=== PATIENT | female | born 1990 | race Caucasian/White ===

== ENCOUNTER 2017-03-26 17:14 | Emergency (ER) | payer MEDICAID ==
[~2017-03-26] VITALS: Ht 157.5 cm; Wt 49.0 kg
[~2017-03-26 17:14] MED LIST: NONE REPORTED
[2017-03-26] MEDS ORDERED: KETOROLAC 60MG/2ML VIAL IM ONE (21:45)
[2017-03-26 22:45] VITALS: BP 123/70
== END 2017-03-26 23:10 | disposition home or self-care (01) ==
LOC: ER 21:29
DX: G89.29 Other chronic pain (principal); M54.2 Cervicalgia; M54.6 Pain in thoracic spine
CPT/HCPCS: 81025; 96372; 99283; J1885

== ENCOUNTER 2018-01-21 10:38 | Emergency (ER) | payer MEDICAID ==
[~2018-01-21] VITALS: Ht 160 cm; Wt 48.0 kg
[2018-01-21 11:01] LABS: CLARITY URINE CLOUDY (CLEAR); COLOR URINE YELLOW (YELLOW); KETONES URINE NEGATIVE (NEGATIVE); LEUKOCYTE ESTERASE URINE NEGATIVE (NEGATIVE); NITRITE URINE NEGATIVE (NEGATIVE); OCCULT BLOOD URINE 1+ (NEGATIVE); PROTEIN URINE NEGATIVE (NEGATIVE); SPECIFIC GRAVITY URINE 1.023 (1.005-1.030)
[2018-01-21 14:36] LABS: CHLORIDE 107 mEq/L (98-107)
[2018-01-21 14:37] LABS: BASOPHILS % 0.3 % (0.0-2.0); HEMOGLOBIN. 12.8 g/dL (12.0-16.0); LYMPHOCYTES % 24.2 % (20.0-50.0); MEAN CORPUSCULAR HEMOGLOBIN 31.9 pg (28.0-32.0); MEAN CORPUSCULAR VOLUME 92.5 fL (81.0-99.0); MEAN PLATELET VOLUME 7.8 fl (7.4-10.4); MONOCYTES % 5.2 % (2.0-8.0); NEUTROPHILS % 67.3 % (40.0-76.0); PLATELET 284 x1000/uL (130-400); RED CELL DISTRIBUTION WIDTH 11.6 % (11.6-14.6)
[2018-01-21 14:38] LABS: PROTHROMBIN TIME 10.9 sec (9.4-11.6)
[2018-01-21 17:07] VITALS: BP 112/60
== END 2018-01-21 17:08 | disposition home or self-care (01) ==
LOC: ER 12:41
DX: R10.2 Pelvic and perineal pain (principal)
CPT/HCPCS: 36415; 76856; 80053; 81003; 81025; 83690; 85025; 85610; 99285

== ENCOUNTER 2018-06-04 11:52 | Emergency (ER) | payer MEDICAID ==
[~2018-06-04] VITALS: Ht 157.5 cm; Wt 45.0 kg
[2018-06-04 12:44] LABS: BASOPHILS % 0.6 % (0.0-2.0); EOSINOPHILS % 2.5 % (0.0-5.0); HEMATOCRIT. 40.2 % (36.0-48.0); HEMOGLOBIN. 13.6 g/dL (12.0-16.0); LYMPHOCYTES % 26.2 % (20.0-50.0); MEAN CORPUSCULAR HEMOGLOBIN 31.2 pg (28.0-32.0); MEAN PLATELET VOLUME 7.6 fl (7.4-10.4); MONOCYTES % 5.7 % (2.0-8.0); PLATELET 306 x1000/uL (130-400); RED BLOOD CELL COUNT 4.37 mill/uL (4.2-5.4); RED CELL DISTRIBUTION WIDTH 12.2 % (11.6-14.6)
[2018-06-04 12:50] LABS: PROTHROMBIN TIME 10.1 sec (9.1-11.1)
[2018-06-04 12:53] LABS: CHLORIDE 101 mEq/L (98-107)
[2018-06-04] MEDS ORDERED: SODIUM CHLORIDE 0.9% 1,000 ML IV ONE (13:20)
[2018-06-04] MEDS ORDERED: KETOROLAC 30MG/ML VIAL IV STA (13:20)
[2018-06-04 13:39] LABS: HCG SCREEN NEGATIVE
[2018-06-04 13:41] LABS: D-DIMER < 0.19 mg/L FEU (<0.50); PARTIAL THROMBOPLASTIN TIME 25.1 sec (23.4-31.0)
[2018-06-04 14:44] LABS: PHENCYCLIDINE URINE SCREEN NEGATIVE (NEGATIVE)
[2018-06-04 14:45] LABS: *AMPHETAMINES SCREEN URINE NEGATIVE (NEGATIVE); *BARBITURATES SCREEN URINE NEGATIVE (NEGATIVE); *BENZODIAZEPINES SCREEN URINE NEGATIVE (NEGATIVE); *COCAINE SCREEN URINE NEGATIVE (NEGATIVE); CANNABINOID URINE SCREEN NEGATIVE (NEGATIVE); METHADONE URINE SCREEN NEGATIVE (NEGATIVE); OPIATES URINE SCREEN NEGATIVE (NEGATIVE)
[2018-06-04 16:22] VITALS: BP 109/66
== END 2018-06-04 16:26 | disposition home or self-care (01) ==
LOC: ER 11:52
DX: R07.9 Chest pain, unspecified (principal); Z79.899 Other long term (current) drug therapy
CPT/HCPCS: 36415; 71045; 80053; 80305; 81025; 84484; 84703; 85025; 85379; 85610; 85730; 93005; 93970; 96374; 99285; J1885; J7030; Z7610

== ENCOUNTER 2020-04-02 11:53 | Emergency (ER) | payer MEDICAID ==
[~2020-04-02] VITALS: Ht 160 cm; Wt 60.0 kg
[2020-04-02] MEDS ORDERED: MAGNESIUM/ALUMINUM HYDROXIDE/SIMETHICONE 30ML UDC PO STA (12:32)
[2020-04-02] MEDS ORDERED: VISCOUS LIDOCAINE 2% 15 ML UDC PO STA (12:32)
[2020-04-02] MEDS ORDERED: ASPIRIN 81MG TABLET PO ONE (14:30)
[2020-04-02] MEDS ORDERED: KETOROLAC 30MG/ML VIAL IM ONE (15:00)
[2020-04-02 16:15] LABS: CHLORIDE 104 mEq/L (98-107)
[2020-04-02 16:24] LABS: BASOPHILS % 0.3 % (0.0-2.0); EOSINOPHILS % 1.8 % (0.0-5.0); HEMATOCRIT. 38.1 % (36.0-48.0); HEMOGLOBIN. 13.2 g/dL (12.0-16.0); LYMPHOCYTES % 25.7 % (20.0-50.0); MEAN CORPUSCULAR HEMOGLOBIN 32.2 pg (28.0-32.0); MEAN CORPUSCULAR VOLUME 93.1 fL (81.0-99.0); MEAN PLATELET VOLUME 7.7 fl (7.4-10.4); MONOCYTES % 5.6 % (2.0-8.0); NEUTROPHILS % 66.6 % (40.0-76.0); PLATELET 319 x1000/uL (130-400); RED BLOOD CELL COUNT 4.09 mill/uL (4.2-5.4); RED CELL DISTRIBUTION WIDTH 11.7 % (11.6-14.6)
[2020-04-02 17:00] VITALS: BP 103/69
== END 2020-04-02 17:42 | disposition home or self-care (01) ==
LOC: ER 11:53
DX: R07.89 Other chest pain (principal); F41.9 Anxiety disorder, unspecified; R20.0 Anesthesia of skin; K21.9 Gastro-esophageal reflux disease without esophagitis; R03.0 Elevated blood-pressure reading, without diagnosis of hypertension
CPT/HCPCS: 36415; 71046; 80053; 81025; 83690; 83880; 84484; 85025; 85379; 93005; 96372; 99285; J1885; Z7610

== ENCOUNTER 2020-09-30 00:37 | Emergency (ER) | payer MEDICAID ==
[~2020-09-30] VITALS: Ht 162.6 cm; Wt 56.0 kg
[2020-09-30 01:36] VITALS: BP 129/85
== END 2020-09-30 02:32 | disposition home or self-care (01) ==
LOC: ER 00:37
DX: U07.1 COVID-19 (principal); B34.9 Viral infection, unspecified; R43.0 Anosmia
CPT/HCPCS: 99283; C9803; U0003